=== PATIENT | male | born 1965 | race Caucasian/White ===

== ENCOUNTER 2021-05-30 14:57 | Emergency (ER) | payer OTHER ==
[~2021-05-30 14:57] MED LIST: ANUCORT-HC25 M1 PR; NAPROXEN500 MG PO
[2021-05-30 15:38] LABS: BASOPHIL 0.4 % (0-2); EOSINOPHIL 0.5 % (0-5); HCT 37.2 % (42.0-52.0); HGB 12.8 g/dl (13.2-18.0); LYMPHOCYTE 8.1 % (15-48); MCH 29.6 pg (25.0-31.0); MCHC 34.4 g/dL (32.0-36.0); MCV 85.9 fL (78.0-100.0); MONOCYTE 10.3 % (0-12); MPV 10.7 fL (6.0-9.5); NEUTROPHIL 80.2 % (41-80); NRBC 0; PLT 174 K/uL (150-400); RBC 4.33 M/uL (4.70-6.00); WBC 11.8 K/uL (4.0-10.5)
[2021-05-30 16:01] LABS: ALBUMIN 3.4 g/dL (3.4-5.0); BUN/CREAT RATIO (CALC) 20.9 RATIO; CREATININE 0.91 mg/dL (0.67-1.17); GLOBULIN (CALCULATION) 3.1 g/dL; POTASSIUM 3.3 mmol/L (3.5-5.1); TOTAL PROTEIN 6.5 g/dL (6.4-8.2)
[2021-05-30] MEDS ORDERED: BACTROBAN NASAL1 GM (21:14)
== END 2021-05-30 21:24 ==
LOC: FER 14:57
PROVIDERS: Emergency Medicine
DX: S01.01XA Laceration without foreign body of scalp, initial encounter (principal); S20.212A Contusion of left front wall of thorax, initial encounter; S00.83XA Contusion of other part of head, initial encounter; S63.501A Unspecified sprain of right wrist, initial encounter; I10 Essential (primary) hypertension; E11.9 Type 2 diabetes mellitus without complications; Z02.79 Encounter for issue of other medical certificate; Z79.899 Other long term (current) drug therapy; V89.2XXA Person injured in unspecified motor-vehicle accident, traffic, initial encounter
CPT/HCPCS: 36415; 70450; 71045; 73110; 73130; 80053; 82150; 83690; 85025; G0480; J7030